=== PATIENT | female | born 1975 | race Two or more races ===

== ENCOUNTER 2016-06-17 21:47 | Emergency (ER) | payer OTHER ==
[2016-06-17 22:07] VITALS: BP 117/73; PULSE 67; TEMP 97.9; BMI 30.3
--- NOTE | 2016-06-17 22:56 | PDOC ---
History of Present Illness - General Chief Complaint: Vaginal Sxs Stated Complaint: Vaginal Bleeding Time Seen by Provider: 06/17/16 22:18 - History of Present Illness Initial Comments: 06/17/16 22:56 CHIEF COMPLAINT: vaginal bleeding, HISTORY OF PRESENT ILLNESS: 41 yo F with no PMH presents to ED with vaginal bleeding. Patient states she took a Plan B in late April and was started on a new control pill on 05/31/16. She states that her vagina " feels swollen" and she has been bleeding/spotting for almost 3 weeks now. She states that she also has pain that to her sides. She has not had an STD test in about 2 years, and has had unprotected sex. Patient also reports that she has a corporate travel consultant appt on Thursday 06/22. PAST MEDICAL HISTORY: as per HPI FAMILY HISTORY: Denies SOCIAL HISTORY: Lives at home. Denies tobacco, alcohol, illicit drug use. SURGICAL HISTORY: Denies ALLERGIES: No known drug allergies REVIEW OF SYSTEMS General/Constitutional: Denies fever or chills. Denies weakness, weight change. HEENT: Denies change in vision. Denies ear pain or discharge. Denies sore throat. Cardiovascular: Denies chest pain or shortness of breath. Respiratory: Denies cough, wheezing, or hemoptysis. Gastrointestinal: Denies nausea, vomiting, diarrhea or constipation. Denies rectal bleeding. Genitourinary: Vaginal swelling, discomfort. Denies dysuria, frequency, or change in urination. Musculoskeletal: Pain travels to side of back from "down there." Skin and breasts: Denies rash or easy bruising. Neurologic: Denies headache, vertigo, loss of consciousness, or loss of sensation. PHYSICAL EXAM General Appearance: Well-appearing, appropriately dressed. No apparent distress , no intoxication. HEENT: EOMI, PERRLA, normal ENT inspection, normal voice, TMs normal, pharynx normal. No conjunctival pallor. No photophobia, scleral icterus. Neck: Supple. Trachea midline. No tenderness, rigidity, carotid bruit, stridor , lymphadenopathy, or thyromegaly. Respiratory/Chest: Lungs CTAB. No shortness of breath, chest tenderness, respiratory distress, accessory muscle use. No crackles, rales, rhonchi, stridor , wheezing, dullness Cardiovascular: RRR. S1, S2. No JVD, murmur, bradycardia, tachycardia. Vascular Pulses: Dorsalis-Pedis (R): 2+, Dorsalis-Pedis (L): 2+ Gastrointestinal/Abdominal: Normal bowel sounds. Abdomen soft, non-distended. No tenderness or rebound tenderness. No organomegaly, pulsatile mass, guarding, hernia, hepatomegaly, splenomegaly. Pelvic: Suprapubic tenderness L sided adnexal tenderness. External genitalia normal without lesions. Vaginal vault is clear without blood or discharge. Cervix is long and closed. No cervical motion tenderness. Uterus is nontender and normal in size. Lymphatic: No adenopathy, tenderness. Musculoskeletal/Extremities: Bilateral CVA tenderness. Normal inspection. FROM of all extremities, normal capillary refill. Pelvis Stable. No tenderness to extremities, pedal edema, swelling, erythema or deformity. Integumentary: Appropriate color, dry, warm. 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 Fully oriented, alert. Appropriate mood/affect. Motor strength 5/5. No appreciable EOM palsy, facial droop or sensory deficit. Past History - Past Medical History Allergies/Adverse Reactions: Allergies Allergy/AdvReac Type Severity Reaction Status Date / Time No Known Allergies Allergy Verified 06/17/16 21:56 Home Medications: Ambulatory Orders NK [No Known Home Medication] 06/17/16 - Surgical History Cholecystectomy: Yes - Psycho/Social/Smoking Cessation Hx Suicidal Ideation: No Smoking History: Never smoked Number of Cigarettes Smoked Daily: 0 Information on smoking cessation initiated: No Hx Alcohol Use: No Drug/Substance Use Hx: No *Physical Exam - Vital Signs Last Vital Signs Temp Pulse Resp BP Pulse Ox 97.9 F 67 14 117/73 100 06/17/16 21:56 06/17/16 21:56 06/17/16 21:56 06/17/16 21:56 06/17/16 21:56 ED Treatment Course - LABORATORY CBC & Chemistry Diagram: 06/17/16 23:15 Medical Decision Making - Medical Decision Making 06/18/16 06:01 41 yo F with no significant PMH presents to ED with vaginal bleeding x 3 weeks. -CBC -UA, UCx -Ct/GC -Genital culture. -TV U/S -800 mg ibuprofen for pain control Left ovarian cyst appreciated on ultrasound. Will treat empirically for PID given patient's sexual history and no recent STD testing. -1g azithromycin po -250 mg Rocephin IM Advised patient to keep appt with PATIENT ATTENDANT on Wednesday. Advised patient of signs and symptoms for return to ED. Patient verbalized understanding and agrees to plan. 06/18/16 06:03 *DC/Admit/Observation/Transfer Diagnosis at time of Disposition: Pelvic pain - Discharge Dispostion Admit: No - Patient Instructions Printed Discharge Instructions: DI for Pelvic Pain Additional Instructions: You were treated for a possible chlamydia/gonorrhea infection today. As discussed, please follow up with your Dr. Ramirez, your lacquer sizer on Wednesday as planned. If you experience severe bleeding (more than one soaked pad per hour) , pain on urination, blood in your urine, fever, chills, nausea, vomiting, diarrhea, or any new or worsening symptoms, please return to the ER.
[2016-06-18 00:10] LABS: EOSINOPHIL 2.1 % (0-4.5); MCH 26.1 pg (25.7-33.7); MCHC 31.7 g/dl (32.0-36.0); MEAN CELL VOLUME 82.4 fl (80-96); MEAN PLT VOLUME 8.4 fl (7.5-11.1); NEUTROPHILS 53.4 % (42.8-82.8); PLATELET COUNT 295 K/MM3 (134-434); RDW 16.6 % (11.6-15.6); WHITE BLOOD COUNT 7.9 K/mm3 (4.0-10.0)
[2016-06-18 00:13] LABS: URINE APPEARANCE CLEAR; URINE BILIRUBIN NEGATIVE (NEGATIVE); URINE COLOR LTYELLOW; URINE GLUCOSE (UA) NEGATIVE (NEGATIVE); URINE KETONE NEGATIVE (NEGATIVE); URINE NITRITE NEGATIVE (NEGATIVE); URINE PROTEIN NEGATIVE (NEGATIVE); URINE UROBILINOGEN NEGATIVE E.U./dl (0.2-1.0)
[2016-06-18 00:16] LABS: URINE BLOOD 1+ (NEGATIVE); URINE LEUK ESTERASE TRACE (NEGATIVE)
[2016-06-18 00:22] LABS: URINE HYALINE CAST 1 /lpf; URINE MUCUS RARE; URINE RBC 4 /hpf (0-3); URINE WBC 7 /hpf (3-5)
[2016-06-18] MEDS ORDERED: IBUPROFEN 400 MG TABLET (FP) PO ONE ×2 (00:23)
[2016-06-18] MEDS ORDERED: AZITHROMYCIN 250 MG TABLET (FP) PO ONE (00:49)
[2016-06-18] MEDS ORDERED: AZITHROMYCIN 250 MG TABLET (FP) ONE (01:06)
[2016-06-18] MEDS ORDERED: cefTRIAXone SODIUM 1 GM VIAL ONE (01:06)
[2016-06-18] MEDS ORDERED: LIDOCAINE HCL/PF 1% SDV 5ML VIAL ONE (01:06)
== END 2016-06-18 01:21 | disposition home or self-care (01) ==
LOC: JER 21:47
DX: R10.2 Pelvic and perineal pain (principal); N83.292 Other ovarian cyst, left side
CPT/HCPCS: 36415; 76856-TC; 81003; 81015; 84703; 85025; 87070; 87086; 87205; 87491; 87591; 96372; 99282-25